=== PATIENT | female | born 1995 | race Two or more races ===

== ENCOUNTER 2019-12-09 05:10 | Day surgery (SDC) | payer OTHER | END 2019-12-09 14:30 | disposition home or self-care (01) | LOC: CIR.AMB 05:10 → ADM 08:15 → CIR.AMB 08:15 | PROVIDERS: ATTEND Obstetrics & Gynecology | DX: D26.1 Other benign neoplasm of corpus uteri (principal); Z20.828 Contact with and (suspected) exposure to other viral communicable diseases ==

== ENCOUNTER 2020-10-29 10:51 | Outpatient (CLI) | payer OTHER | END 2020-10-29 11:12 | disposition home or self-care (01) | LOC: RX STUDY 10:51 | PROVIDERS: ATTEND Obstetrics & Gynecology | DX: N97.0 Female infertility associated with anovulation (principal); N93.8 Other specified abnormal uterine and vaginal bleeding ==

== ENCOUNTER 2021-02-24 09:51 | Outpatient (CLI) | payer OTHER | END 2021-02-24 10:13 | disposition home or self-care (01) | LOC: RX STUDY 09:51 | PROVIDERS: ATTEND Obstetrics & Gynecology | DX: R10.2 Pelvic and perineal pain (principal); N91.2 Amenorrhea, unspecified ==